=== PATIENT | male | born 1990 | race Caucasian/White ===

== ENCOUNTER 2018-07-21 16:26 | Emergency (ER) | payer SELFPAY | END 2018-07-21 17:52 | disposition left against medical advice (07) | LOC: E/R 16:26 | DX: Z53.21 Procedure and treatment not carried out due to patient leaving prior to being seen by health care provider (principal) ==

== ENCOUNTER 2018-07-21 18:40 | Emergency (ER) | payer SELFPAY ==
[2018-07-21 21:45] LABS: BARBITURATES Negative (NEGATIVE); BENZODIAZEPINES Negative (NEGATIVE); CANNABINOIDS Positive (NEGATIVE); COCAINE Negative (NEGATIVE); OPIATES Negative (NEGATIVE)
[2018-07-21 22:03] LABS: AMPHETAMINE/METHAMPHETAMINE Positive (NEGATIVE)
[2018-07-21 22:03] LABS: TROPONIN-I < 0.012 ng/ml (0.000-0.120)
[2018-07-21] MEDS: LORAZEPAM 2 MG INJ IM (22:44)
== END 2018-07-22 00:29 | disposition home or self-care (01) ==
LOC: FTE 07-22 00:29
DX: F41.9 Anxiety disorder, unspecified (principal); F17.210 Nicotine dependence, cigarettes, uncomplicated; F15.10 Other stimulant abuse, uncomplicated; Z76.0 Encounter for issue of repeat prescription
CPT/HCPCS: 71046; 80307; 84484; 93005; 96372; 99285-25